=== PATIENT | male | born 1975 | race Caucasian/White ===

== ENCOUNTER 2020-09-12 20:15 | Emergency (ER) | payer BC ==
[~2020-09-12] VITALS: Ht 190.5 cm; Wt 61.2 kg
[2020-09-12] MEDS ORDERED: PRED20 PO (21:27)
== END 2020-09-12 21:59 | disposition home or self-care (01) ==
LOC: ER 20:15
DX: L25.5 Unspecified contact dermatitis due to plants, except food (principal)
CPT/HCPCS: 99282; J7512